=== PATIENT | female | born 1990 | race Caucasian/White ===

== ENCOUNTER 2018-09-24 09:09 | Outpatient (CLI) | payer OTHER | END 2018-09-24 17:00 | disposition home or self-care (01) | LOC: TOM 09:09 | DX: R31.21 Asymptomatic microscopic hematuria (principal) ==

== ENCOUNTER → 2022-11-28 | Outpatient (CLI) | payer OTHER | END | disposition home or self-care (01) | LOC: TOM 07:38 | DX: D13.4 Benign neoplasm of liver (principal) ==

== ENCOUNTER 2023-04-25 14:04 | Outpatient (CLI) | payer OTHER | END 2023-04-25 14:30 | disposition home or self-care (01) | LOC: MRI 14:04 | DX: S83.200A Bucket-handle tear of unspecified meniscus, current injury, right knee, initial encounter (principal) | CPT/HCPCS: 73721 ==